=== PATIENT | male | born 1945 | race Caucasian/White ===

== ENCOUNTER 2024-03-07 10:32 | Inpatient (IN) | payer MEDICARE, BC ==
[2024-03-07 11:37] LABS: BASOPHILS ABSOLUTE AUTO 0.08 K/uL (0.00-0.10); EOSINOPHILS ABSOLUTE AUTO 0.18 K/uL (0.00-0.40); EOSINOPHILS PERCENT AUTO 2.2 % (0.0-5.4); HEMATOCRIT 20.6 % (38.4-49.7); IMMATURE GRAN ABSOLUTE AUTO 0.07 K/uL (0.00-0.23); IMMATURE GRAN PERCENT AUTO 0.8 % (0.0-0.7); LYMPHOCYTES ABSOLUTE AUTO 1.62 K/uL (0.8-3.3); LYMPHOCYTES PERCENT AUTO 19.4 % (11.4-47.7); MEAN CORPUSCULAR HEMOGLOBIN 29.1 pg (31.6-35.5); MEAN CORPUSCULAR HGB CONC 32.5 g/dL (31.6-35.5); MEAN CORPUSCULAR VOLUME 89.6 fL (81.4-99.0); MONOCYTES ABSOLUTE AUTO 0.55 K/uL (0.20-0.90); MONOCYTES PERCENT AUTO 6.6 % (3.3-12.6); NEUTROPHILS ABSOLUTE AUTO 5.83 K/uL (1.0-7.6); PLATELET COUNT,PLT 189 K/uL (130-375); WHITE BLOOD CELL COUNT,WBC 8.3 K/uL (3.2-11.0)
[2024-03-07 11:40] LABS: HEMOGLOBIN 6.7 g/dL (12.9-16.9)
[2024-03-07] MEDS: Sodium Chloride 0.9% 1,000 ML IV ONE (11:44)
[2024-03-07 11:48] LABS: A/G RATIO 0.9 (1.2-2.2); ALANINE AMINOTRANSFERASE,ALT 14 U/L (12-78); ALBUMIN 2.6 g/dL (3.4-5.0); ALKALINE PHOSPHATASE 67 U/L (46-116); ASPARTATE AMNIOTRANSFERASE,AST 12 U/L (15-37); BILIRUBIN TOTAL 0.4 mg/dL (0.2-1.0); BLOOD UREA NITROGEN,BUN 71 mg/dL (7-18); C-REACTIVE PROTEIN 0.62 mg/dL (<0.50); CALCIUM 7.2 mg/dL (8.5-10.1); CARBON DIOXIDE,CO2 20 mmol/L (21-32); CHLORIDE,CL 108 mmol/L (100-108); CREATININE 2.6 mg/dL (0.8-1.3); ESTIMATED GFR 24 mL/min (>60); GLUCOSE RANDOM 163 mg/dL (74-106); POTASSIUM,K 4.5 mmol/L (3.6-5.2); PROTEIN TOTAL,TP 5.5 g/dL (6.4-8.2); SODIUM,NA 139 mmol/L (140-148)
[2024-03-07 11:51] LABS: ANION GAP 15.5 mmol/L (5.0-14.0)
[2024-03-07] MEDS ORDERED: Ondansetron 4 MG/2 ML SDV IV PRN (15:25)
[2024-03-07] MEDS ORDERED: Acetaminophen 325 MG Tab PO PRN (15:25)
[2024-03-07] MEDS ORDERED: Sennosides/Docusate Sodium 50-8.6 MG Tab PO PRN (15:25)
[2024-03-07] MEDS ORDERED: Ondansetron 4 MG Tab.DIS PO PRN (15:25)
[2024-03-07] MEDS ORDERED: Magnesium Hydroxide 400 MG/5 ML Susp 30 ML Cup PO PRN (15:25)
[2024-03-07] MEDS: Pantoprazole 40 MG Vial IV SCH (18:00)
[2024-03-07] MEDS: hydrALAZINE 25 MG Tab PO SCH (20:34)
[2024-03-07] MEDS: atorvaSTATin 20 MG Tab PO SCH (20:34)
[2024-03-07] MEDS: Dorzolamide/Timolol 2%-0.5% Ophth Soln 10 ML Bottle EYEBOTH SCH (20:36)
[2024-03-08 05:22] LABS: HEMATOCRIT 22.7 % (38.4-49.7); HEMOGLOBIN 7.6 g/dL (12.9-16.9); MEAN CORPUSCULAR HEMOGLOBIN 29.5 pg (31.6-35.5); MEAN CORPUSCULAR HGB CONC 33.5 g/dL (31.6-35.5); RED BLOOD CELL COUNT 2.58 M/uL (4.14-5.76); WHITE BLOOD CELL COUNT,WBC 7.9 K/uL (3.2-11.0)
[2024-03-08 05:38] LABS: CREATININE 2.3 mg/dL (0.8-1.3); EST CRCL DRUG DOSING (CG) 29.05 mL/min; POTASSIUM,K 4.2 mmol/L (3.6-5.2)
[2024-03-08 05:41] LABS: ANION GAP 12.2 mmol/L (5.0-14.0)
[2024-03-08 05:42] LABS: CALCIUM 6.9 mg/dL (8.5-10.1)
[2024-03-08] MEDS: Sodium Chloride 0.9% 1,000 ML IV SCH (07:14)
[2024-03-08] MEDS: Carvedilol 12.5 MG Tab PO SCH (08:31)
[2024-03-08] MEDS: amLODIPine 5 MG Tab PO SCH (08:32)
[2024-03-08] MEDS: Sodium Ferric Gluconate Cmplex 250 MG in Sodium Chloride 0.9% 100 ML IV ONE (16:30)
[2024-03-09 01:55] LABS: HEMATOCRIT 22.1 % (38.4-49.7); HEMOGLOBIN 7.5 g/dL (12.9-16.9); MEAN CORPUSCULAR HGB CONC 33.9 g/dL (31.6-35.5); MEAN CORPUSCULAR VOLUME 88.4 fL (81.4-99.0); RED BLOOD CELL COUNT 2.5 M/uL (4.14-5.76); WHITE BLOOD CELL COUNT,WBC 9.7 K/uL (3.2-11.0)
[2024-03-09 02:13] LABS: CALCIUM 7.4 mg/dL (8.5-10.1); CREATININE 2.3 mg/dL (0.8-1.3); EST CRCL DRUG DOSING (CG) 29.05 mL/min; POTASSIUM,K 4.5 mmol/L (3.6-5.2)
[2024-03-09 02:25] LABS: ANION GAP 15.5 mmol/L (5.0-14.0)
[2024-03-09] MEDS ORDERED: Calcium Carbonate 500 MG Tab.Chew PO PRN (14:18)
[2024-03-09] MEDS: Bisacodyl 5 MG Tab PO ONE (14:31)
[2024-03-09] MEDS: Polyethylene Glycol 3350 Powder 238 GM Bot PO ONE (14:31)
[2024-03-09] MEDS: Polyethylene Glycol 3350 Powder 119 GM Bottle PO ONE (21:47)
[2024-03-09] MEDS: Polyethylene Glycol 3350 Powder 238 GM Bot ONE (22:50)
[2024-03-10] MEDS: Sodium Chloride 0.9% 1,000 ML IV SCH (02:45)
[2024-03-10 04:52] LABS: HEMATOCRIT 21.1 % (38.4-49.7); HEMOGLOBIN 7.1 g/dL (12.9-16.9); MEAN CORPUSCULAR HEMOGLOBIN 29.6 pg (31.6-35.5); MEAN CORPUSCULAR HGB CONC 33.6 g/dL (31.6-35.5); MEAN CORPUSCULAR VOLUME 87.9 fL (81.4-99.0); RED BLOOD CELL COUNT 2.4 M/uL (4.14-5.76); WHITE BLOOD CELL COUNT,WBC 9.4 K/uL (3.2-11.0)
[2024-03-10 05:18] LABS: CALCIUM 7.5 mg/dL (8.5-10.1); CREATININE 2.4 mg/dL (0.8-1.3); EST CRCL DRUG DOSING (CG) 27.84 mL/min; POTASSIUM,K 4.1 mmol/L (3.6-5.2)
[2024-03-10 05:19] LABS: ANION GAP 14.1 mmol/L (5.0-14.0)
[2024-03-10] MEDS ORDERED: fentaNYL 50 MCG/ML SDV ONE (07:39)
[2024-03-10] MEDS ORDERED: Propofol 200 MG/20 ML SDV ONE ×2 (07:39→08:17)
[2024-03-10] MEDS ORDERED: Lactated Ringers 1,000 ML ONE (08:31)
[2024-03-10 15:29] VITALS: BP 129/63; PULSE 64
== END 2024-03-10 16:00 | disposition home or self-care (01) | DRG 811 ==
LOC: JP.ED 10:32 → JP.ICU 13:31
PROVIDERS: ADMIT Internal Medicine; ATTEND Internal Medicine
PROC: 30233N1 Transfusion of Nonautologous Red Blood Cells into Peripheral Vein, Percutaneous Approach (ICD-10-PCS; 2024-03-07)
PROC: 30233N1 Transfusion of Nonautologous Red Blood Cells into Peripheral Vein, Percutaneous Approach (ICD-10-PCS; 2024-03-08)
PROC: 30233N1 Transfusion of Nonautologous Red Blood Cells into Peripheral Vein, Percutaneous Approach (ICD-10-PCS; 2024-03-09)
PROC: 0DJD8ZZ Inspection of Lower Intestinal Tract, Via Natural or Artificial Opening Endoscopic (ICD-10-PCS; 2024-03-10)
PROC: 30233N1 Transfusion of Nonautologous Red Blood Cells into Peripheral Vein, Percutaneous Approach (ICD-10-PCS; 2024-03-10)
PROC: 0DB98ZX Excision of Duodenum, Via Natural or Artificial Opening Endoscopic, Diagnostic (ICD-10-PCS; principal; 2024-03-10 07:45)
PROC: 0DB78ZX Excision of Stomach, Pylorus, Via Natural or Artificial Opening Endoscopic, Diagnostic (ICD-10-PCS; 2024-03-10 07:45)
DX: K92.2 Gastrointestinal hemorrhage, unspecified (principal); I10 Essential (primary) hypertension; D62 Acute posthemorrhagic anemia; K57.31 Diverticulosis of large intestine without perforation or abscess with bleeding; E78.00 Pure hypercholesterolemia, unspecified; I12.9 Hypertensive chronic kidney disease with stage 1 through stage 4 chronic kidney disease, or unspecified chronic kidney disease; N18.32 Chronic kidney disease, stage 3b; M19.90 Unspecified osteoarthritis, unspecified site; Z95.0 Presence of cardiac pacemaker; Z86.010 Personal history of colon polyps; Z96.659 Presence of unspecified artificial knee joint; Z98.890 Other specified postprocedural states; Z79.899 Other long term (current) drug therapy
CPT/HCPCS: 36415; 36430; 80053; 83605; 83690; 85025; 86140; 86850; 86900; 86901; 86920 ×4; 86922 ×4; 93005; 96360; 96361; 99285; J7030; P9016; 00813-QZ; 80048; 85018; 85027; 88305; 93010; 99222; 99232; 99238; A9270-GY; C9113; J2704; J2916; J3010; J3490; J7120